=== PATIENT | female | born 1965 | race African-American/Black ===

== ENCOUNTER 2017-02-22 12:20 | Emergency (ER) | payer OTHER ==
[2017-02-22 13:41] LABS: #Basophils 0.1 thou/uL (0.0-0.2); #Eosinphils 0.3 thou/uL (0.0-0.7); #Lymphocytes 2.9 thou/uL (1.20-3.40); #Monocytes 0.4 thou/uL (0.11-0.59); %Basophils 1.5 % (0.0-1.0); %Eosinophils 3.3 % (0.0-10.0); %Lymphocytes 38.1 % (21.0-51.0); %Monocytes 5.4 % (0.0-10.0); %Neutrophils 51.7 % (42.0-75.0); Hemoglobin 12.7 g/dL (12.0-16.0); Mean Corpuscular HGB CONC 31.8 g/dL (32.0-36.0); Mean Corpuscular Volume 91.3 fl (81.0-99.0); Mean Platelet Volume 7.2 fL (7.4-10.4); Platelet Count 288 thou/uL (130-400); RBC Distribution Width 15.7 % (11.5-14.5); Red Blood Cell (RBC) Count 4.37 mill/uL (4.20-5.40); White Blood Cell (WBC) Count 7.7 thou/uL (4.8-10.8)
[2017-02-22 13:58] LABS: ALT (SGPT) 15 U/L (8-55); AST (SGOT) 13 U/L (5-34); Albumin 3.6 g/dL (3.5-5.0); Alkaline Phosphatase 90 U/L (40-150); Anion Gap 13 mmol/L (10-20); BUN (Urea Nitrogen) 16 mg/dL (7.0-18.7); Bilirubin, Total 0.4 mg/dL (0.2-1.2); CK (CPK) 74 U/L (29-168); Calc. Creatinine Clearance 0 mL/min (70-130); Calcium 9.2 mg/dL (7.8-10.44); Carbon Dioxide 25 mmol/L (22-29); Chloride 102 mmol/L (98-107); Estimated GFR-MDRD 81; Globulin 3.9 g/dL (2.4-3.5); Glucose 103 mg/dL (70-105); Potassium 4.2 mmol/L (3.5-5.1); Protein, Total 7.5 g/dL (6.0-8.3); Sodium 136 mmol/L (136-145)
[2017-02-22 14:03] LABS: CKMB 0.9 ng/mL (0-6.6); Troponin I Less than 0.010 ng/mL (< 0.028)
--- NOTE | 2017-02-22 14:12 | RAD ---
AP VIEW CHEST: Date: 02/22/17 HISTORY: Dyspnea. FINDINGS: Comparison made to previous exam from 03/25/15. AP view of chest demonstrates the lungs to be well aerated. No evidence of active intrathoracic disea se is seen. No evidence of effusions, pneumonia, or pneumothorax seen. IMPRESSION: Unremarkable AP view of chest. POS: [facility]
[2017-02-22] MEDS ORDERED: cloNIDine 0.1 MG TAB ONE (14:34)
== END 2017-02-22 14:35 | disposition home or self-care (01) ==
LOC: ERS 12:20
DX: I10 Essential (primary) hypertension (principal); J44.9 Chronic obstructive pulmonary disease, unspecified; F32.9 Major depressive disorder, single episode, unspecified; F17.210 Nicotine dependence, cigarettes, uncomplicated; Z79.899 Other long term (current) drug therapy
CPT/HCPCS: 36415; 71010; 80053; 82553; 84484; 85025; 93005; 99406

== ENCOUNTER 2017-09-09 19:26 | Emergency (ER) | payer OTHER ==
[2017-09-09 19:56] LABS: Bilirubin Negative (Negative); Blood, Urine Small (Negative); Clarity CLEAR (Clear); Glucose, Urine (Dipstick) Negative (Negative); Leukocyte Negative (Negative); Nitrite Negative (Negative); Protein, Urine (Dipstick) 100 mg/dL (Neg-Trace); Specific Gravity, Urine 1.014 (1.002-1.036)
[2017-09-09 19:59] LABS: Bacteria/HPF None Seen HPF (None Seen); Hyaline Casts/LPF 0-3 HYALINE CAST LPF (0-3 Hyaline); Squamous Epithelial 0-3 HPF (0-3); WBC/HPF 0-3 HPF (0-3)
[2017-09-09 20:17] LABS: Hemoglobin 12.3 g/dL (12.0-16.0); Mean Corpuscular HGB CONC 33.1 g/dL (32.0-36.0); Mean Corpuscular Hemoglobin 29.4 pg (27.0-31.0); Mean Corpuscular Volume 88.9 fL (78.0-98.0); Mean Platelet Volume 6.7 fL (7.4-10.4); Platelet Count 266 thou/uL (130-400); RBC Distribution Width 14.9 % (11.5-14.5); Red Blood Cell (RBC) Count 4.18 mill/uL (4.20-5.40); White Blood Cell (WBC) Count 7.6 thou/uL (4.8-10.8)
[2017-09-09 20:33] LABS: #Basophils 0.1 thou/uL (0.0-0.2); #Eosinphils 0.3 thou/uL (0.0-0.7); #Monocytes 0.4 thou/uL (0.11-0.59); #Neutrophils 4.8 thou/uL (1.40-6.50); %Basophils 0.7 % (0.0-1.0); %Eosinophils 3.5 % (0.0-10.0); %Lymphocytes 26.4 % (21.0-51.0); %Monocytes 5.7 % (0.0-10.0); %Neutrophils 63.7 % (42.0-75.0); PLT Morphology Comment Appears Adequate; RBC Morphology Normal
[2017-09-09 20:37] LABS: ALT (SGPT) 15 U/L (8-55); AST (SGOT) 15 U/L (5-34); Albumin 3.6 g/dL (3.5-5.0); Alkaline Phosphatase 105 U/L (40-150); Anion Gap 13 mmol/L (10-20); BUN (Urea Nitrogen) 6 mg/dL (9.8-20.1); Bilirubin, Total 0.6 mg/dL (0.2-1.2); Calc. Creatinine Clearance 0 mL/min (70-130); Calcium 9.4 mg/dL (7.8-10.44); Carbon Dioxide 26 mmol/L (22-29); Chloride 101 mmol/L (98-107); Estimated GFR-MDRD 90; Glucose 102 mg/dL (70-105); Lipase 10 U/L (8-78); Potassium 4.4 mmol/L (3.5-5.1); Protein, Total 7.6 g/dL (6.0-8.3); Sodium 136 mmol/L (136-145)
--- NOTE | 2017-09-09 20:44 | RAD ---
FRONTAL RADIOGRAPH CHEST: 09/09/17 COMPARISON: 02/22/17 HISTORY: Cough and congestion. FINDINGS: Mild perihilar interstitial prominence noted. Heart and mediastinal contours are stable. No pneumotho rax or pleural fluid. No focal consolidation or alveolar edema. IMPRESSION: No acute findings. POS: [facility]
== END 2017-09-09 22:12 | disposition home or self-care (01) ==
LOC: ERS 19:26
DX: J06.9 Acute upper respiratory infection, unspecified (principal); J44.9 Chronic obstructive pulmonary disease, unspecified; E66.9 Obesity, unspecified; I10 Essential (primary) hypertension; F17.210 Nicotine dependence, cigarettes, uncomplicated; Z71.6 Tobacco abuse counseling
CPT/HCPCS: 36415; 71045; 80053; 81003; 81015; 83690; 85025; 99406

== ENCOUNTER 2018-02-24 04:21 | Emergency (ER) | payer OTHER ==
[2018-02-24 05:10] LABS: #Basophils 0.1 thou/uL (0.0-0.2); #Eosinphils 0.2 thou/uL (0.0-0.7); #Lymphocytes 2.7 thou/uL (1.20-3.40); #Monocytes 0.4 thou/uL (0.11-0.59); #Neutrophils 3.2 thou/uL (1.40-6.50); %Basophils 1.1 % (0.0-1.0); %Eosinophils 3.3 % (0.0-10.0); %Lymphocytes 41.1 % (21.0-51.0); %Monocytes 5.8 % (0.0-10.0); %Neutrophils 48.8 % (42.0-75.0); Hemoglobin 12.9 g/dL (12.0-16.0); Mean Corpuscular HGB CONC 32.6 g/dL (32.0-36.0); Mean Corpuscular Hemoglobin 29.2 pg (27.0-31.0); Mean Corpuscular Volume 89.7 fL (78.0-98.0); Mean Platelet Volume 7.3 fL (7.4-10.4); Platelet Count 267 thou/uL (130-400); Red Blood Cell (RBC) Count 4.43 mill/uL (4.20-5.40); White Blood Cell (WBC) Count 6.6 thou/uL (4.8-10.8)
[2018-02-24 05:26] LABS: Bilirubin Negative (Negative); Blood, Urine Negative (Negative); Clarity CLEAR (Clear); Glucose, Urine (Dipstick) Negative (Negative); Leukocyte Negative (Negative); Nitrite Negative (Negative); Protein, Urine (Dipstick) 100 mg/dL (Neg-Trace); Specific Gravity, Urine 1.023 (1.002-1.036)
[2018-02-24 05:29] LABS: Bacteria/HPF None Seen HPF (None Seen); Hyaline Casts/LPF 0-3 HYALINE CAST LPF (0-3 Hyaline); RBC/HPF 0-3 HPF (0-3); Squamous Epithelial 0-3 HPF (0-3); WBC/HPF 0-3 HPF (0-3)
[2018-02-24 05:34] LABS: ALT (SGPT) 13 U/L (8-55); AST (SGOT) 14 U/L (5-34); Albumin 3.4 g/dL (3.5-5.0); Alkaline Phosphatase 98 U/L (40-150); Anion Gap 12 mmol/L (10-20); BUN (Urea Nitrogen) 17 mg/dL (9.8-20.1); Bilirubin, Total 0.3 mg/dL (0.2-1.2); Calc. Creatinine Clearance 0 mL/min (70-130); Carbon Dioxide 25 mmol/L (22-29); Chloride 103 mmol/L (98-107); Estimated GFR-MDRD 90; Glucose 117 mg/dL (70-105); Lipase 17 U/L (8-78); Potassium 4.1 mmol/L (3.5-5.1); Protein, Total 7.4 g/dL (6.0-8.3); Sodium 136 mmol/L (136-145)
[2018-02-24] MEDS ORDERED: Lidocaine Viscous Sol 2% 15 ml UD Cup ONE ×2 (06:40→08:20)
[2018-02-24] MEDS ORDERED: Mag-Al 1200 mg/1200 mg/30 ML UDCUP ONE ×2 (06:40→08:20)
[2018-02-24 07:40] LABS: Troponin I Less than 0.010 ng/mL (< 0.028)
--- NOTE | 2018-02-24 07:45 | ULT ---
RIGHT UPPER QUADRANT ULTRASOUND: Date: 02/24/18 HISTORY: 52-year-old female with history of right upper quadrant pain, lightheadedness, dizziness. FINDINGS: Hepatomegaly with minimally coarse increased echogenicity. No evidence of gallstones, gallbladder wal l thickening, or pericholecystic fluid. Common bile duct 0.4 cm. Visualized pancreas and right kidney are unremarkable. IMPRESSION: Hepatomegaly with minimal coarse echogenicity. No gallstones or ductal dilatation. POS: [facility]
--- NOTE | 2018-02-24 08:51 | RAD ---
FRONTAL VIEW CHEST: Date: 02/24/18 COMPARISON: 09/09/17. INDICATION: Chest pain. FINDINGS: There is enlargement of the cardiac silhouette and prominence of pulmonary vasculature with bilateral interstitial and alveolar opacification. Elevation of right hemidiaphragm noted. IMPRESSION: Findings favoring fluid overload. There is a small, indeterminate, superimposed nodular density at th e right suprahilar region. Follow-up upon resolution of acute symptoms and completion of treatment re gimen recommended to confirm resolution and to exclude underlying pulmonary nodule. CODE LN. POS: [facility]
--- NOTE | 2018-02-27 16:58 | EKG ---
Test Reason : Blood Pressure : / mmHG Vent. Rate : 077 BPM Atrial Rate : 077 BPM P-R Int : 178 ms QRS Dur : 078 ms QT Int : 414 ms P-R-T Axes : 043 020 036 degrees QTc Int : 468 ms Normal sinus rhythm Possible Left atrial enlargement Borderline ECG Confirmed by RITA PLUMMER ([id number]), story editor BERNADETTE HERNANDEZ ([id number] on 02/27/2018 4:58:07 PM Referred By: Confirmed By:RITA PLUMMER
== END 2018-02-24 08:25 | disposition home or self-care (01) ==
LOC: ERS 04:21
DX: K21.9 Gastro-esophageal reflux disease without esophagitis (principal); E66.9 Obesity, unspecified; J44.9 Chronic obstructive pulmonary disease, unspecified; I10 Essential (primary) hypertension; F17.210 Nicotine dependence, cigarettes, uncomplicated; Z79.899 Other long term (current) drug therapy
CPT/HCPCS: 36415; 71045; 76705; 80053; 81003; 81015; 83690; 83880; 84484; 85025; 85379; 93005

== ENCOUNTER 2018-05-01 18:35 | Emergency (ER) | payer OTHER ==
[2018-05-01 20:02] LABS: #Basophils 0.1 thou/uL (0.0-0.2); #Eosinphils 0.3 thou/uL (0.0-0.7); #Lymphocytes 3.8 thou/uL (1.20-3.40); #Monocytes 0.4 thou/uL (0.11-0.59); #Neutrophils 4.6 thou/uL (1.40-6.50); %Basophils 0.7 % (0.0-1.0); %Lymphocytes 41.7 % (21.0-51.0); %Monocytes 4.4 % (0.0-10.0); %Neutrophils 50.3 % (42.0-75.0); Hemoglobin 13.4 g/dL (12.0-16.0); Mean Corpuscular HGB CONC 31.8 g/dL (32.0-36.0); Mean Corpuscular Hemoglobin 29.3 pg (27.0-31.0); Mean Corpuscular Volume 92.1 fL (78.0-98.0); Mean Platelet Volume 7.4 fL (7.4-10.4); Platelet Count 279 thou/uL (130-400); Red Blood Cell (RBC) Count 4.58 mill/uL (4.20-5.40); White Blood Cell (WBC) Count 9.1 thou/uL (4.8-10.8)
[2018-05-01] MEDS ORDERED: Meclizine HCl 25 MG TAB ONE (20:28)
[2018-05-01 20:42] LABS: ALT (SGPT) 14 U/L (8-55); AST (SGOT) 13 U/L (5-34); Albumin 3.7 g/dL (3.5-5.0); Alkaline Phosphatase 103 U/L (40-150); Anion Gap 12 mmol/L (10-20); BUN (Urea Nitrogen) 17 mg/dL (9.8-20.1); Bilirubin, Total 0.3 mg/dL (0.2-1.2); Calc. Creatinine Clearance 0 mL/min (70-130); Calcium 9.8 mg/dL (7.8-10.44); Carbon Dioxide 26 mmol/L (22-29); Chloride 103 mmol/L (98-107); Estimated GFR-MDRD 80; Globulin 4.1 g/dL (2.4-3.5); Glucose 114 mg/dL (70-105); Potassium 4.1 mmol/L (3.5-5.1); Protein, Total 7.8 g/dL (6.0-8.3); Sodium 137 mmol/L (136-145)
[2018-05-01 20:48] LABS: Bilirubin Negative (Negative); Blood, Urine Negative (Negative); Clarity CLEAR (Clear); Glucose, Urine (Dipstick) Negative (Negative); Leukocyte Negative (Negative); Nitrite Negative (Negative); Protein, Urine (Dipstick) 100 mg/dL (Neg-Trace); pH, Urine 5.5 (5.0-9.0)
[2018-05-01 20:49] LABS: Bacteria/HPF Rare-Few HPF (None Seen); Hyaline Casts/LPF 0-3 HYALINE CAST LPF (0-3 Hyaline); Pathc Cast-AUWi Flag 0.14 (0-2.49); RBC/HPF 0-3 HPF (0-3); Squamous Epithelial 0-3 HPF (0-3)
--- NOTE | 2018-05-01 21:12 | RAD ---
AP VIEW CHEST 05/01/18 HISTORY: Syncope. Nausea. AP view chest is obtained on 05/01/18. Comparison made to a previous exam from 02/24/18. AP view chest demonstrates mild cardiomegaly. Mild pulmonary vascular congestion seen. No evidence of effusions, pneumonia or pneumothorax seen. IMPRESSION: Cardiomegaly and pulmonary vascular congestion. POS: [facility]
--- NOTE | 2018-05-01 23:16 | CT ---
CT BRAIN 05/01/18 HISTORY: Headache. Noncontrast enhanced CT images of the brain is obtained on 05/01/18. COMPARISON: Comparison made to previous exam from 10/22/12. CT images of the brain demonstrate the brain to be unremarkable. No evidence of intracranial masses, hemorrhages, strokes or contusions. Ventricles are of normal size. IMPRESSION: Unremarkable CT brain. POS: [facility]
== END 2018-05-02 00:31 | disposition home or self-care (01) ==
LOC: ERS 18:35
DX: R42 Dizziness and giddiness (principal); R51 Headache; M79.605 Pain in left leg; J44.9 Chronic obstructive pulmonary disease, unspecified; E66.9 Obesity, unspecified; I10 Essential (primary) hypertension; F17.210 Nicotine dependence, cigarettes, uncomplicated
CPT/HCPCS: 36415; 70450; 71045; 80053; 81003; 81015; 82550; 84484; 85025; 93005

== ENCOUNTER 2018-07-17 10:19 | Emergency (ER) | payer OTHER | END 2018-07-17 11:00 | disposition home or self-care (01) | LOC: ERS 10:19 | DX: H10.9 Unspecified conjunctivitis (principal); F17.210 Nicotine dependence, cigarettes, uncomplicated | CPT/HCPCS: 99283 ==

== ENCOUNTER 2018-07-29 22:07 | Emergency (ER) | payer OTHER | END 2018-07-29 23:00 | disposition home or self-care (01) | LOC: ERS 22:07 | DX: N76.2 Acute vulvitis (principal); J44.9 Chronic obstructive pulmonary disease, unspecified; I10 Essential (primary) hypertension; F17.210 Nicotine dependence, cigarettes, uncomplicated | CPT/HCPCS: 99283 ==

== ENCOUNTER 2019-07-18 12:47 | Outpatient (CLI) | payer OTHER | END 2019-07-18 12:48 | disposition home or self-care (01) | LOC: ULT 12:47 | PROVIDERS: ATTEND Student in an Organized Health Care Education/Training Program | DX: I50.9 Heart failure, unspecified (principal); I51.7 Cardiomegaly | CPT/HCPCS: 93306 ==